=== PATIENT | female | born 1955 | race African-American/Black ===

== ENCOUNTER 2019-11-09 23:49 | Emergency (ER) | payer BC, OTHER ==
[~2019-11-09] VITALS: Ht 172.7 cm; Wt 86.6 kg
--- NOTE | 2019-11-10 00:08 | PHYS DOC ---
General Adult EDM: Chief Complaint: WRIST PAIN HPI: HPI: Patient is a 64 year old female who presents with complaint of left wrist pain and swelling for the last week. Patient indicates that she had surgery on that wrist about 5 years ago and intermittently has pain associated with it. She states that swelling had been quite a bit worse yesterday and has gone down some but she still has a lot of pain in there. She states the pain is worsened with palpation and with movement of the wrist. She denies any recent injuries.[] Review of Systems: Review of Systems: Constitutional: Denies fever or chills. [] Respiratory: Denies cough or shortness of breath. [] Cardiovascular: Denies chest pain or edema. [] Musculoskeletal: Complains of left wrist pain. [] Integument: Denies rash. [] Neurologic: Denies headache, focal weakness or sensory changes. [] Heart Score: Risk Factors: Risk Factors: DM, Current or recent (<one month) smoker, HTN, HLP, family history of CAD, obesity. Risk Scores: Score 0 - 3: 2.5% MACE over next 6 weeks - Discharge Home Score 4 - 6: 20.3% MACE over next 6 weeks - Admit for Clinical Observation Score 7 - 10: 72.7% MACE over next 6 weeks - Early Invasive Strategies Physical Exam: PE: Constitutional: Well developed, well nourished, no acute distress, non-toxic appearance. [] Cardiovascular:Heart rate regular rhythm, no murmur [] Lungs & Thorax: Bilateral breath sounds clear to auscultation [] Skin: Warm, dry, no rash. [] Extremities: Examination of left wrist demonstrates mild soft tissue swelling with redness and warmth around the radial aspect of the wrist. [] Neurologic: Alert and oriented X 3, no focal deficits noted. [] EKG: EKG: [] Radiology/Procedures: Radiology/Procedures: [] Course & Med Decision Making: Course & Med Decision Making Pertinent Labs and Imaging studies reviewed. (See chart for details) [] Dragon Disclaimer: Dragon Disclaimer: This electronic medical record was generated, in whole or in part, using a voice recognition dictation system. Departure Departure Impression: Primary Impression: Left wrist pain Disposition: HOME, SELF-CARE Condition: STABLE Referrals: UNKNOWN PCP NAME (PCP) Patient Instructions: Wrist Pain Scripts Acetaminophen With Codeine (TYLENOL WITH CODEINE #3 TABLET) 1 Each Tablet 1 TAB PO PRN Q6HRS PRN for PAIN, #12 TAB Prov: MARCELLA QUINONEZ Jr. DO 11/10/19 Methylprednisolone (MEDROL) 4 Mg Tab.ds.pk 1 PKG PO UD, #1 PKG Prov: MARCELLA QUINONEZ Jr. DO 11/10/19 Diclofenac Sodium (DICLOFENAC SODIUM) 50 Mg Tablet.dr 1 TAB PO BID PRN for PAIN, #20 TAB Prov: MARCELLA QUINONEZ Jr. DO 11/10/19 MARCELLA QUINONEZ Jr. DO Nov 10, 2019 00:08
[2019-11-10 00:09] VITALS: BP 188/86
--- NOTE | 2019-11-10 00:49 | RAD ---
Study: CR WRIST 3V LEFT Indication: Pain and swelling. Comparison: None. Findings: Partially imaged distal ulna plate and screw ORIF construct. The visualized portion of the hardware is intact and without loosening. Ill-defined mineralization projects along the ulnar margin of the triquetrum. An osseous defect along the ulnar margin of the triquetrum is noted but with sclerotic margins suggesting chronicity. Cystic changes of the lunate. No acute fracture is identified. Mild first CMC and triscaphe arthrosis. The soft tissues appear somewhat prominent along the ulnar aspect of the distal forearm and wrist. Impression: 1. Nonspecific ill-defined mineralization projecting along the ulnar margin of the triquetrum and there is also mild prominence of the soft tissues along the ulnar aspect of the distal forearm and wrist. Given the mineralization, a crystalline arthropathy is a consideration. 2. No acute fracture or aggressive osseous process. 3. Partially imaged distal ulna surgical construct without hardware complication. 4. Relatively mild degenerative changes, as above. Electronically signed by: MARIO PAUL MD (11/10/2019 12:46 AM) [id number]
[2019-11-10] MEDS ORDERED: METH4TAB2 PO (00:50)
[2019-11-10] MEDS ORDERED: DICL50TA4 PO (00:50)
[2019-11-10] MEDS ORDERED: ACET-704 PO (00:50)
[2019-11-10] MEDS ORDERED: ACETAMINOPHEN/CODEINE 300/30MG TABLET. PO ONE (01:30)
== END 2019-11-10 01:15 | disposition home or self-care (01) ==
LOC: ER 23:49
DX: M25.532 Pain in left wrist (principal)
CPT/HCPCS: 73110; 99283

== ENCOUNTER 2021-07-22 22:17 | Emergency (ER) | payer BC ==
[~2021-07-22] VITALS: Ht 185.4 cm; Wt 95.0 kg
[~2021-07-22 22:17] MED LIST: ACET-704 PO; DICL50TA4 PO; METH4TAB2 PO
[2021-07-23 00:27] LABS: BASO % 1 % (0-3); EOS % 0 % (0-3); HEMATOCRIT 40.3 % (36.0-47.0); HEMOGLOBIN 13.4 g/dL (12.0-15.5); LYMPH # 1.9 x10^3/uL (1.0-4.8); LYMPH % 24 % (24-48); MEAN CORPUSCULAR HEMOGLOBIN 31 pg (25-35); MEAN CORPUSCULAR HGB CONC 33 g/dL (31-37); MEAN CORPUSCULAR VOLUME 94 fL (79-100); MONO # 0.6 x10^3/uL (0.0-1.1); MONO % 8 % (0-9); NEUT # 5.4 x10^3/uL (1.8-7.7); NEUT % 68 % (31-73); PLATELET COUNT 260 x10^3/uL (140-400); RED CELL DISTRIBUTION WIDTH 13.7 % (11.5-14.5)
[2021-07-23] MEDS ORDERED: ONDANSETRON PF 4 MG/2 ML VIAL. IVP ONE (00:30)
[2021-07-23] MEDS ORDERED: HYDROmorphone 2 MG/ML INJ. IV/SQ PRN (00:30)
[2021-07-23] MEDS ORDERED: HYDROmorphone 2 MG/ML INJ. IVP ONE (00:30)
[2021-07-23] MEDS ORDERED: IV NORMAL SALINE 1000ML BAG 1,000 ML IV SCH (00:30)
--- NOTE | 2021-07-23 00:33 | PHYS DOC ---
Past Medical History Past Medical History: Hypertension, Hypothyroid Past Surgical History: Other Additional Past Surgical Histo: LEFT WRIST SURGERY MAR 2015 Smoking Status: Never Smoker Alcohol Use: None General Adult EDM: Chief Complaint: FLANK PAIN HPI: HPI: 66-year-old female past medical history of hypertension, hyperlipidemia, chronic low back pain with neuropathy and thyroid disease, presents to the ed with her daughter, (patient consents to his/her/their knowledge and involvement in pts' medical care), planes of sudden onset right flank pain that started around 8:15 PM patient just started drinking a beer. States pain is not radiated into her right lower quadrant, describes as pressure in nature and " feels almost worse than when I was in labor." Denies any fall/trauma or injury. Past surgical history partial hysterectomy and wrist surgery. Denies any tobacco use, alcohol or illicit drug use. Is vaccine and booster for COVID-19. Has not had COVID-19 infection. States "I'm nauseous and have nothing to bring up." Reports increased urinary frequency. States she took 4 tablets of Tylenol at 8:15 PM with no relief. Cannot take Naprosyn due to "leg swelling," and takes lasix stating "I no longer have leg swelling." Denies any history of cardiac disease or congestive heart failure. Review of Systems: Review of Systems: Constitutional: Denies fever or chills. [] Eyes: Denies change in visual acuity. [] HENT: Denies nasal congestion or sore throat. [] Respiratory: Denies cough or shortness of breath. [] Cardiovascular: Denies chest pain or edema. [] GI: Denies bloody stools or diarrhea. [] : Denies hematuria or vaginal bleeding Musculoskeletal: Denies midline back pain or joint pain. [] Integument: Denies rash or diaphoresis Neurologic: Denies headache, focal weakness or sensory changes. [] Endocrine: Denies polyuria or polydipsia. [] Lymphatic: Denies swollen glands. [] Psychiatric: Denies depression or anxiety. [] Heart Score: C/O Chest Pain: No Risk Factors: Risk Factors: DM, Current or recent (<one month) smoker, HTN, HLP, family history of CAD, obesity. Risk Scores: Score 0 - 3: 2.5% MACE over next 6 weeks - Discharge Home Score 4 - 6: 20.3% MACE over next 6 weeks - Admit for Clinical Observation Score 7 - 10: 72.7% MACE over next 6 weeks - Early Invasive Strategies Allergies: Allergies: Allergies Coded Allergies Type Severity Reaction Last Updated Verified Sulfa (Sulfonamide Antibiotics) Allergy Severe SOA 11/10/19 Yes Penicillins Allergy Intermediate Hives 11/10/19 Yes Physical Exam: PE: Constitutional: Uncomfortable and writhing in ED stretcher, HENT: Normocephalic, atraumatic, dry mucous membranes Eyes: EOMI, conjunctiva normal, no discharge. Neck: Normal range of motion, supple, Cardiovascular: S1/2 present, regular rhythm Lungs & Thorax: Speaking in full sentences, bilateral equal chest rise, no tachypnea or increased work of breathing Abdomen: soft, diffuse right lower quadrant tenderness with no specific McBurney's point tenderness, no rigidity Skin: Warm, dry, no erythema, no rash. [] Back: No midline tenderness, right CVA tenderness. [] Extremities: No tenderness, no cyanosis, no lower extremity edema Neurologic: Alert and oriented X 3, normal motor function, normal sensory function, no focal deficits noted. [] Psychologic: Affect normal, judgement normal, mood normal. [] EKG: EKG: Patient is 32 bpm, no axis deviation, T wave inversion lead III, no ST elevation or ST depression, first-degree AV block with NE interval 210 Radiology/Procedures: Radiology/Procedures: IMAGING REPORT Signed PATIENT: SANDRA ARMENDARIZ ACCOUNT: [id number] : 1955 LOCATION: ER AGE: 66 SEX: F EXAM STATUS: REG ER ORD. PHYSICIAN: ANDRZEJ WEEKS DO REASON: right flank pain, rlq pain PROCEDURE: CT ABDOMEN PELVIS WO/W EXAM: CT Abdomen and Pelvis with and without IV contrast CLINICAL HISTORY: Reason: right flank pain, rlq pain / Spl. Instructions: / History: . COMPARISON: none TECHNIQUE: Helical CT of the abdomen and pelvis was performed before and after the administration of intravenous contrast. Axial, coronal and sagittal reformatted images were generated. PQRS compliance statement - One or more of the following individualized dose reduction techniques were utilized for this study: 1. Automated exposure control 2. Adjustment of the mA and/or kV according to patient size 3. Use of iterative reconstruction technique FINDINGS: Lower chest: Lung bases are clear. Abdomen and Pelvis: Liver, gallbladder, pancreas, spleen and adrenal glands are unremarkable. Delayed right nephrogram. Right perinephric edema. Moderate right hydronephrosis and hydroureter to level of a 4 mm right ureterovesicular junction. Bladder is unremarkable. Moderate colonic stool content is seen. Colonic diverticulosis without CT evidence for acute diverticulitis. Small hiatal hernia. Appendix is normal. No abdominal or pelvic ascites. No abdominal or pelvic lymphadenopathy. Trace fat-containing periumbilical hernia. Aorta is normal in caliber with intermittent atherosclerotic calcifications. There has been a hysterectomy. Bones: Degenerative changes of the spine are seen. IMPRESSION: 1. 4 mm calculus at the right ureterovesicular junction with moderate right hydronephrosis and hydroureter. 2. Appendix is normal. Electronically signed by: Reid Paul MD (07/23/2021 1:30 AM) JENNY DICTATED and SIGNED BY: REID PAUL MD DATE: 07/23/21 [id number] [id number] REPORT Signed PATIENT: SANDRA ARMENDARIZ ACCOUNT: [id number] : 1955 LOCATION: ER AGE: 66 SEX: F EXAM STATUS: REG ER ORD. PHYSICIAN: ANDRZEJ WEEKS DO REASON: right flank pain, n/v PROCEDURE: PORTABLE CHEST 1V EXAM: AP View of the chest DATE: 07/23/2021 12:53 AM INDICATION: Reason: right flank pain, n/v / Spl. Instructions: / History: COMPARISON: No Prior FINDINGS: The heart is not enlarged. Mediastinal and hilar contours are normal. Minimal bibasilar opacities likely atelectasis. No pleural effusion or pneumothorax. IMPRESSION: Minimal bibasilar opacities likely atelectasis. Electronically signed by: Reid Paul MD (07/23/2021 1:25 AM) JENNY DICTATED and SIGNED BY: REID PAUL MD DATE: 07/23/21 [id number] Course & Med Decision Making: Course & Med Decision Making Pertinent Labs and Imaging studies reviewed. (See chart for details) Right sided 4 mm ureterolithiasis with moderate hydronephrosis at UVP junction. U/a with no bacteria. Labs unremarkable with no leukocytosis. Pain and vomiting now controlled. Daughter will transport pt home. Will discharge home with strict ED return precautions were given for fever, intractable nausea or vomiting, worsening pain or dysuria. Encouraged urgent outpatient follow-up with PMD for routine care and urology for definitive management of kidney stones. Life- threatening processes were considered but are low suspicion at this time, given history, physical exam and ED workup. Pt was educated on all prescription medications and adverse effects. All patient's questions were answered and pt was stable at time of discharge. Life/limb-threatening differential includes but is not limited to, aortic dissection/aneurysm, cauda equina syndrome, transverse myelitis, spinal cord/epidural compression syndromes, discitis, spinal stenosis, epidural abscess or hematoma, osteomyelitis, disc herniation, surgical abdomen, stable or unstable fracture, renal/ureteral colic, sepsis, meningitis, musculoskeletal injury, traumatic injury, intraabdominal/retroperitoneal or pelvic bleeding. I have spoken with the patient and/or caregivers. I explained the patient's condition, diagnoses and treatment plan based on the information available to me at this time. I have answered the patient and/or caregiver's questions and addressed any concerns. The patient and/or caregivers have a good understanding of patient's diagnosis, condition and treatment plan as can be expected at this point. Vital signs have been stable. Patient's condition is stable and appropriate for discharge from the emergency department. Patient will pursue further outpatient evaluation with primary care physician or other designated or consulting physician as outlined in the discharge instruct ions. The patient and/or caregivers are agreeable to this plan of care and follow-up instructions have been explained in detail. The patient and/or caregivers have received these instructions in written form and have expressed an understanding of the discharge instructions. The patient and/or caregivers are aware that any significant change of condition or worsening of symptoms should prompt immediate return to this or the closest emergency department or call to 911. Lashay Disclaimer: Lashay Disclaimer: This electronic medical record was generated, in whole or in part, using a voice recognition dictation system. Departure Departure Impression: Primary Impression: Renal colic on right side Additional Impressions: Ureterolithiasis Hydronephrosis Disposition: HOME / SELF CARE / HOMELESS Condition: STABLE Referrals: UNKNOWN PCP NAME (PCP) Follow-up with your primary care physician in 24 to 48 hours OR FOLLOW UP WITH FAMILY MEDICINE: [address] [place] [address] Patient Instructions: Diet for Kidney Stones, Hydronephrosis, Ureteral Colic Additional Instructions: FOLLOW UP WITH UROLOGY: FOR DEFINITIVE MANAGEMENT of kidney stones/renal colic and hydronephrosis [facility] [address] [place] [address] [place] [place] [address] [place] [address] [place] [address] [place] [address] EMERGENCY DEPARTMENT GENERAL DISCHARGE INSTRUCTIONS Thank you for coming to Emergency Department (ED) today and trusting us with you care. We trust that you had a positive experience in our Emergency Department. If you wish to speak to the department management, you may call the Director at [phone]. YOUR FOLLOW UP INSTRUCTIONS ARE FOLLOWS: 1. Do you have a private Doctor? If you do not have a private doctor, please ask for a resource list of physicians or clinics that may be able to assist you with follow up care. 2. The Emergency Physicain has interpreted your x-rays. The X-Ray specialist will also review them. If there is a change in the findings, you will be notified in 48 hours when at all possible. 3. A lab test or culture has been done, your results will be reviewed and you will be notified if you need a change in treatment. ADDITIONAL INSTRUCTIONS AND INFORMATION: 1. Your care today has been supervised by a physician who is specially trained in emergency care. Many problems require more than one evaluation for a complete diagnosis and treatment. We recommend that you schedule your follow up appointment as recommended to ensure complete treatment of you illness or injury. If you are unable to obtain follow up care and continue to have a problem, or if your condition worsens, we recommend that you return to the ED. 2. We are not able to safely determine your condition over the phone nor are we able to give sound medical advice over the phone. For these safety reasons, if you call for medical advice we will ask you to come to the ED for further evaluation. 3. If you have any questions regarding these discharge instructions please call the ED at [phone]. SAFETY INFORMATION: In the interest of safety, wellness, and injury prevention; we encourage you to wear your sealbelt, if you smoke; quite smoking, and we encourage family to use a protective helmet for bicycling and other sporting events that present an increased risk for head injury. IF YOUR SYMPTOMS WORSEN OR NEW SYMPTOMS DEVELOP, OR YOU HAVE CONCERNS ABOUT YOUR CONDITION; OR IF YOUR CONDITION WORSENS WHILE YOU ARE WAITING FOR YOUR FOLLOW UP APPOINTMENT; EITHER CONTACT YOUR PRIMARY CARE DOCTOR, THE PHYSICIAN WHOSE NAME AND NUMBER YOU WERE GIVEN, OR RETURN TO THE ED IMMEDIATELY. Scripts Hydrocodone Bit/Acetaminophen (HYDROCODONE-APAP 5-325 ) 1 Tab Tablet 1 TAB PO PRN Q6HRS PRN for PAIN for 4 Days, #16 TAB 0 Refills Prov: ANDRZEJ WEEKS DO 07/23/21 Ondansetron (ONDANSETRON ODT) 4 Mg Tab.rapdis 1 TAB PO PRN Q6-8HRS, #20 TAB Prov: ANDRZEJ WEEKS DO 07/23/21 Tamsulosin Hcl (FLOMAX) 0.4 Mg Cap.er.24h 1 CAP PO DAILY for 14 Days, #14 CAP 0 Refills Prov: ANDRZEJ WEEKS DO 07/23/21 ANDRZEJ WEEKS DO Jul 23, 2021 00:33
[2021-07-23 00:37] LABS: CREATININE 0.7 mg/dL (0.6-1.0); GFR 100.7; POTASSIUM 4.3 mmol/L (3.5-5.1)
[2021-07-23 00:41] LABS: BILIRUBIN,URINE NEGATIVE (NEG); CLARITY,URINE CLEAR; COLOR,URINE YELLOW; NITRITE,URINE NEGATIVE (NEG); PH,URINE 6.5 (<5.0-8.0); PROTEIN,URINE NEGATIVE (NEG-TRACE)
[2021-07-23 00:43] LABS: ALBUMIN 3.3 g/dL (3.4-5.0); ALBUMIN/GLOBULIN RATIO 0.8 (1.0-1.7); MAGNESIUM 2.3 mg/dL (1.8-2.4); TOTAL BILIRUBIN 0.5 mg/dL (0.2-1.0); TOTAL PROTEIN 7.5 g/dL (6.4-8.2)
[2021-07-23 00:47] LABS: AMPHETAMINE/METHAMPHETAMINE NEG (NEG); BARBITURATES NEG (NEG); BENZODIAZEPINES NEG (NEG); CANNABINOIDS NEG (NEG); COCAINE NEG (NEG); METHADONE NEG (NEG); OPIATES NEG (NEG); PHENCYCLIDINE NEG (NEG)
[2021-07-23 00:53] LABS: BACTERIA,URINE 0 /HPF (0-FEW); RBC,URINE 20-40 /HPF (0-2); WBC,URINE OCC /HPF (0-4)
--- NOTE | 2021-07-23 01:27 | RAD ---
EXAM: AP View of the chest DATE: 07/23/2021 12:53 AM INDICATION: Reason: right flank pain, n/v / Spl. Instructions: / History: COMPARISON: No Prior FINDINGS: The heart is not enlarged. Mediastinal and hilar contours are normal. Minimal bibasilar opacities likely atelectasis. No pleural effusion or pneumothorax. IMPRESSION: Minimal bibasilar opacities likely atelectasis. Electronically signed by: Reid Paul MD (07/23/2021 1:25 AM) JENNY
[2021-07-23] MEDS ORDERED: IOHEXOL 300 MG/ML 100ML VIAL. IV ONE (01:30)
[2021-07-23] MEDS ORDERED: CONTRAST GIVEN. MC PRN (01:30)
--- NOTE | 2021-07-23 01:32 | RAD ---
EXAM: CT Abdomen and Pelvis with and without IV contrast CLINICAL HISTORY: Reason: right flank pain, rlq pain / Spl. Instructions: / History: . COMPARISON: none TECHNIQUE: Helical CT of the abdomen and pelvis was performed before and after the administration of intravenous contrast. Axial, coronal and sagittal reformatted images were generated. PQRS compliance statement - One or more of the following individualized dose reduction techniques wer e utilized for this study: 1. Automated exposure control 2. Adjustment of the mA and/or kV according to patient size 3. Use of iterative reconstruction technique FINDINGS: Lower chest: Lung bases are clear. Abdomen and Pelvis: Liver, gallbladder, pancreas, spleen and adrenal glands are unremarkable. Delayed right nephrogram. R ight perinephric edema. Moderate right hydronephrosis and hydroureter to level of a 4 mm right ureter ovesicular junction. Bladder is unremarkable. Moderate colonic stool content is seen. Colonic diverticulosis without CT evidence for acute divertic ulitis. Small hiatal hernia. Appendix is normal. No abdominal or pelvic ascites. No abdominal or pelvic lymphadenopathy. Trace fat-containing periumbi lical hernia. Aorta is normal in caliber with intermittent atherosclerotic calcifications. There has been a hysterectomy. Bones: Degenerative changes of the spine are seen. IMPRESSION: 1. 4 mm calculus at the right ureterovesicular junction with moderate right hydronephrosis and hydro ureter. 2. Appendix is normal. Electronically signed by: Reid Paul MD (07/23/2021 1:30 AM) JENNY
[2021-07-23] MEDS ORDERED: TAMSULOSIN 0.4 MG CAP.ER.24H. PO ONE (02:15)
[2021-07-23] MEDS ORDERED: TAMS0.4C97 PO ×2 (02:15→02:21)
[2021-07-23] MEDS ORDERED: KETOROLAC 30 MG/ML VIAL. IVP ONE (02:15)
[2021-07-23] MEDS ORDERED: HYDR-2761 PO ×2 (02:15→02:21)
[2021-07-23] MEDS ORDERED: ONDA4TAB12 PO ×2 (02:17→02:21)
[2021-07-23 03:50] VITALS: BP 193/90
--- NOTE | 2021-07-23 03:53 | EKG ---
[facility] [address] [place] [address] Test Date: 2021-07-23 Test Time: 00:40:20 Pat Name: SANDRA ARMENDARIZ Department: Room: Gender: F [employer] Stamping: : 1955 Requested By: ANDRZEJ WEEKS Order Number: [id number] Reading MD: Measurements Intervals [place] Rate: 72 P: 65 DC: 210 QRS: 42 QRSD: 92 T: 74 QT: 408 QTc: 448 Interpretive Statements SINUS RHYTHM QRS(T) CONTOUR ABNORMALITY CONSISTENT WITH ANTEROSEPTAL INFARCT PROBABLY OLD T ABNORMALITY IN HIGH LATERAL LEADS ABNORMAL ECG RI6.01 No previous ECG available for comparison
== END 2021-07-23 04:02 | disposition home or self-care (01) ==
LOC: ER 22:17
DX: N13.2 Hydronephrosis with renal and ureteral calculous obstruction (principal); I10 Essential (primary) hypertension; E03.9 Hypothyroidism, unspecified; Z88.2 Allergy status to sulfonamides; Z88.0 Allergy status to penicillin
CPT/HCPCS: 36415; 71045; 74178; 80053; 80307; 81001; 83690; 83735; 83880; 84484; 85025; 93005; 96361; 96374; 96375; 96376; 99285; G0480; J1170; J1885; J7030; Q9967